=== PATIENT | female | born 1985 | race Hispanic/Latino ===

== ENCOUNTER 2021-08-23 20:12 | Emergency (ER) | payer SELFPAY ==
[2021-08-23 21:42] VITALS: BP 118/76
== END 2021-08-24 08:00 | disposition left against medical advice (07) ==
LOC: ED 20:12
DX: R39.89 Other symptoms and signs involving the genitourinary system (principal); Z53.21 Procedure and treatment not carried out due to patient leaving prior to being seen by health care provider